=== PATIENT | male | born 2005 | race Caucasian/White ===

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

== ENCOUNTER 2024-09-23 17:21 | Inpatient (IN) | payer OTHER, MEDICAID ==
[~2024-09-23] VITALS: Ht 180.3 cm; Wt 63.0 kg
[2024-09-23 17:23] VITALS: O2SAT 99
[2024-09-23] MEDS ORDERED: NALOXONE HCL 0.4MG/ML 1ML VIAL IV PRN (17:45)
[2024-09-23 18:21] LABS: BASOPHILS % 0.3 % (0.0-2.0); EOSINOPHILS % 0.5 % (0.0-5.0); HEMOGLOBIN. 15.5 g/dL (14.0-18.0); LYMPHOCYTES % 28.6 % (20.0-50.0); MEAN CORPUSCULAR HEMOGLOBIN 28.8 pg (28.0-32.0); MEAN CORPUSCULAR HGB CONC 32.4 g/dL (31.0-37.0); MEAN CORPUSCULAR VOLUME 89.1 fL (80.0-94.0); MEAN PLATELET VOLUME 9.2 fl (7.4-10.4); MONOCYTES % 5.9 % (2.0-8.0); NEUTROPHILS % 64.7 % (40.0-76.0); PLATELET 247 x1000/uL (130-400); RED BLOOD CELL COUNT 5.39 mill/uL (4.7-6.1); WHITE BLOOD COUNT 6.1 x1000/uL (4.5-11.0)
[2024-09-23 18:24] LABS: CHLORIDE 103 mEq/L (98-107); POTASSIUM 4.1 mEq/L (3.5-5.1); SODIUM 140 mEq/L (136-145)
[2024-09-23 18:25] LABS: CALCIUM 9.9 mg/dL (8.7-10.4); CARBON DIOXIDE 23 mEq/L (21-32)
[2024-09-23 18:30] LABS: CREATININE 1.3 mg/dL (0.6-1.3); GLUCOSE 121 mg/dL (70-105); UREA NITROGEN BLOOD 11 mg/dL (9-23)
[2024-09-23 18:32] LABS: ACETAMINOPHEN < 2 ug/mL (10-30)
[2024-09-23] MEDS: SODIUM CHLORIDE 0.9% 1,000 ML IV ONE (18:39)
[2024-09-23 18:44] LABS: ETHANOL BLOOD < 10 mg/dL (<10); TROPONIN I HIGH SENSITIVITY < 4 ng/L (3.0-53)
[2024-09-23 19:33] LABS: BG BASE EXCESS -2.5 mmol/L (-2.0-3.0); BG CARBOXYHEMOGLOBIN 1.5 % (0.5-1.5); BG DEOXYHEMOGLOBIN 9.4 % (0.0-5.0); BG FRACTION INSPIRED OXYGEN 21; BG HCO3 ACT 21.1 mmol/L (21.0-28.0); BG METHEMOGLOBIN 0.1 % (0.5-1.5); BG OXYGEN SATURATION 90.4 % (94.0-98.0); BG PCO2 33.7 mmHg (35.0-48.0); BG PH 7.415 (7.350-7.450); BG PO2 56.4 mmHg (83.0-108.0); BG SAMPLE SITE LEFT RADIAL; BG TOTAL HEMOGLOBIN 15.2 g/dL (13.5-17.5); BG VENT MODE ROOM AIR
[2024-09-23 21:15] LABS: TROPONIN I HIGH SENSITIVITY < 4 ng/L (3.0-53)
[2024-09-23 23:32] VITALS: PULSE 95; RESP 22; TEMP 98.5
[2024-09-23] MEDS ORDERED: LORAZEPAM 2MG/ML INJ IV PRN (23:45)
[2024-09-23 23:54] LABS: TROPONIN I HIGH SENSITIVITY < 4 ng/L (3.0-53)
[2024-09-24] MEDS: LEVETIRACETAM 1000MG PREMIX 100 ML IV SCH (01:22)
[2024-09-24] MEDS: ONDANSETRON HCL 4MG/2ML INJ IV PRN (01:22)
[2024-09-24 20:00] VITALS: BP 122/74; PULSE 65; RESP 14; TEMP 37.4; O2SAT 100
[2024-09-24 21:37] VITALS: BP 122/74; PULSE 57; RESP 16; TEMP 36.6
[2024-09-24 22:00] VITALS: BP 114/68; PULSE 60; RESP 12; O2SAT 98
[2024-09-24 23:58] LABS: CLARITY URINE CLEAR (CLEAR); COLOR URINE YELLOW (YELLOW); GLUCOSE URINE NEGATIVE (NEGATIVE); KETONES URINE 1+ (NEGATIVE); LEUKOCYTE ESTERASE URINE NEGATIVE (NEGATIVE); NITRITE URINE NEGATIVE (NEGATIVE); OCCULT BLOOD URINE NEGATIVE (NEGATIVE); PROTEIN URINE TRACE (NEGATIVE); SPECIFIC GRAVITY URINE 1.033 (1.005-1.030); UROBILINOGEN URINE 0.2 E.U./dL (0.2-1.0)
[2024-09-25] VITALS (12 sets, daily range): BP systolic 96–121; BP diastolic 50–82; PULSE 55–92; RESP 12–19; TEMP 36.1–37.3; O2SAT 98–100
[2024-09-25 00:10] LABS: *AMPHETAMINES SCREEN URINE NEGATIVE (NEGATIVE); *BARBITURATES SCREEN URINE NEGATIVE (NEGATIVE); *BENZODIAZEPINES SCREEN URINE PRESUMPTIVE POSITIVE (NEGATIVE); *COCAINE SCREEN URINE NEGATIVE (NEGATIVE); METHADONE URINE SCREEN NEGATIVE (NEGATIVE); OPIATES URINE SCREEN NEGATIVE (NEGATIVE)
[2024-09-25 00:11] LABS: CANNABINOID URINE SCREEN PRESUMPTIVE POSITIVE (NEGATIVE); ECSTASY MDMA SCREEN URINE NEGATIVE (NEGATIVE); PHENCYCLIDINE URINE SCREEN NEGATIVE (NEGATIVE)
[2024-09-25 01:43] LABS: BACTERIA URINE NONE SEEN; RBC URINE 0-2 /hpf (0-2); SQUAMOUS EPITHELIAL CELL URINE NONE SEEN /lpf (RARE/1+); WBC URINE 0-2 /hpf (0-2)
[2024-09-25 11:49] LABS: CARBON DIOXIDE 28 mEq/L (21-32); CHLORIDE 106 mEq/L (98-107); POTASSIUM 4.3 mEq/L (3.5-5.1); SODIUM 143 mEq/L (136-145)
[2024-09-25 11:50] LABS: CALCIUM 9.6 mg/dL (8.7-10.4)
[2024-09-25 11:55] LABS: CREATININE 0.9 mg/dL (0.6-1.3); GLUCOSE 99 mg/dL (70-105)
[2024-09-25 11:56] LABS: ALANINE AMINOTRANSFERASE 16 IU/L (10-49); ALBUMIN 4.2 g/dL (3.2-4.8); ASPARTATE AMINOTRANSFERASE 27 IU/L (<34); UREA NITROGEN BLOOD 9 mg/dL (9-23)
[2024-09-25 11:58] LABS: BILIRUBIN TOTAL 0.5 mg/dL (0.1-1.0); PROTEIN TOTAL 6.8 g/dL (6.0-8.3)
[2024-09-25 12:19] LABS: HEPATITIS B SURFACE ANTIGEN NEGATIVE (Negative)
[2024-09-25 12:40] LABS: HEPATITIS C AB NON REACTIVE (Neg) (Negative)
[2024-09-25] MEDS: SODIUM CHLORIDE 0.9% 1,000 ML IV SCH (14:31)
[2024-09-25 18:32] LABS: BASOPHILS % 0.4 % (0.0-2.0); HEMATOCRIT. 42.8 % (42.0-52.0); LYMPHOCYTES % 32.8 % (20.0-50.0); MEAN CORPUSCULAR HEMOGLOBIN 28.8 pg (28.0-32.0); MEAN CORPUSCULAR HGB CONC 32.8 g/dL (31.0-37.0); MEAN CORPUSCULAR VOLUME 87.7 fL (80.0-94.0); MEAN PLATELET VOLUME 9.3 fl (7.4-10.4); MONOCYTES % 7.7 % (2.0-8.0); NEUTROPHILS % 58.1 % (40.0-76.0); PLATELET 222 x1000/uL (130-400); RED BLOOD CELL COUNT 4.88 mill/uL (4.7-6.1); RED CELL DISTRIBUTION WIDTH 14.1 % (11.6-14.6); WHITE BLOOD COUNT 5.8 x1000/uL (4.5-11.0)
[2024-09-25] MEDS ORDERED: ENOXAPARIN 30MG/0.3ML SYR SUBCUT SCH (19:30)
[2024-09-25] MEDS: ENOXAPARIN 40MG/0.4ML SYR SUBCUT SCH (21:10)
[2024-09-26] VITALS: BP 95/52; PULSE 56; RESP 16; TEMP 36.3; O2SAT 97
[2024-09-26 02:00] VITALS: BP 108/54; PULSE 70; RESP 15; O2SAT 97
[2024-09-26 04:00] VITALS: BP 107/66; PULSE 61; RESP 17; TEMP 36.4; O2SAT 97
[2024-09-26 06:00] VITALS: BP 109/59; PULSE 50; RESP 13; O2SAT 98
[2024-09-26 06:36] LABS: CARBON DIOXIDE 28 mEq/L (21-32); CHLORIDE 107 mEq/L (98-107); POTASSIUM 3.8 mEq/L (3.5-5.1); SODIUM 142 mEq/L (136-145)
[2024-09-26 06:38] LABS: CALCIUM 8.9 mg/dL (8.7-10.4)
[2024-09-26 06:41] LABS: CREATININE 0.9 mg/dL (0.6-1.3)
[2024-09-26 06:42] LABS: BASOPHILS % 0.5 % (0.0-2.0); EOSINOPHILS % 1.3 % (0.0-5.0); GLUCOSE 127 mg/dL (70-105); HEMATOCRIT. 38.8 % (42.0-52.0); HEMOGLOBIN. 12.9 g/dL (14.0-18.0); LYMPHOCYTES % 30.4 % (20.0-50.0); MEAN CORPUSCULAR HEMOGLOBIN 29.2 pg (28.0-32.0); MEAN CORPUSCULAR HGB CONC 33.3 g/dL (31.0-37.0); MEAN CORPUSCULAR VOLUME 87.8 fL (80.0-94.0); MEAN PLATELET VOLUME 9.3 fl (7.4-10.4); MONOCYTES % 7.7 % (2.0-8.0); NEUTROPHILS % 60.1 % (40.0-76.0); PLATELET 193 x1000/uL (130-400); RED BLOOD CELL COUNT 4.42 mill/uL (4.7-6.1); RED CELL DISTRIBUTION WIDTH 14.1 % (11.6-14.6); UREA NITROGEN BLOOD 14 mg/dL (9-23); WHITE BLOOD COUNT 6.3 x1000/uL (4.5-11.0)
[2024-09-26 08:00] VITALS: BP 116/72; PULSE 53; RESP 13; TEMP 36.8; O2SAT 90
[2024-09-26 10:00] VITALS: BP 121/73; PULSE 61; RESP 12; O2SAT 96
== END 2024-09-26 11:30 | disposition left against medical advice (07) | DRG 918 ==
LOC: ER 17:21 → EDBEDREQ 17:39 → EDBEDREQSVC 20:04 → EDBEDREQTM 20:04 → EDBEDREQ 20:04 → 5EST 09-24 20:32
PROVIDERS: ADMIT Internal Medicine; ATTEND Internal Medicine
DX: T42.4X1A Poisoning by benzodiazepines, accidental (unintentional), initial encounter (principal); G90.89 Other disorders of autonomic nervous system; S02.2XXA Fracture of nasal bones, initial encounter for closed fracture; R00.1 Bradycardia, unspecified; F12.90 Cannabis use, unspecified, uncomplicated; Y92.89 Other specified places as the place of occurrence of the external cause; W18.39XA Other fall on same level, initial encounter; Y93.89 Activity, other specified; Y99.8 Other external cause status; Z53.29 Procedure and treatment not carried out because of patient's decision for other reasons
CPT/HCPCS: 36415; 36600; 70486; 71045; 80048; 80053; 80305; 80307; 80320; 80329; 81003; 82375; 82805; 84484; 85025; 86705; 87340; 93005; 96361; 96365; 96366; 96376; 99285; A4606; J1650; J1953; J2405; J7030; G0480

== ENCOUNTER 2024-09-27 13:05 | Emergency (ER) | payer OTHER, MEDICAID ==
[~2024-09-27] VITALS: Ht 180.3 cm; Wt 63.5 kg
[2024-09-27 13:16] VITALS: BP 132/81; PULSE 76; RESP 16; TEMP 36.9; O2SAT 100; O2SAT 99
== END 2024-09-27 13:24 | disposition home or self-care (01) ==
LOC: ER 13:05
DX: Z00.00 Encounter for general adult medical examination without abnormal findings (principal); F10.90 Alcohol use, unspecified, uncomplicated; F12.90 Cannabis use, unspecified, uncomplicated; R56.9 Unspecified convulsions; Y90.9 Presence of alcohol in blood, level not specified
CPT/HCPCS: 99281